=== PATIENT | male | born 1985 | race Hispanic/Latino ===

== ENCOUNTER 2022-03-13 13:34 | Inpatient (IN) | payer SELFPAY ==
[2022-03-13] MEDS ORDERED: HYDROcodone/Acetaminophen 7.5/325 mg Tablet ONE (13:59)
[2022-03-13 15:30] LABS: #Basophils 0.1 thou/uL (0.0-0.2); #Eosinphils 0.1 thou/uL (0.0-0.7); #Lymphocytes 2.4 thou/uL (1.20-3.40); #Monocytes 0.8 thou/uL (0.11-0.59); #Neutrophils 7.6 thou/uL (1.40-6.50); %Basophils 0.7 % (0.0-1.0); %Eosinophils 0.6 % (0.0-10.0); %Lymphocytes 22.1 % (21.0-51.0); %Monocytes 7.3 % (0.0-10.0); %Neutrophils 69.2 % (42.0-75.0); Hemoglobin 14.2 g/dL (14.0-18.0); Mean Corpuscular HGB CONC 34.8 g/dL (32.0-36.0); Mean Corpuscular Hemoglobin 31.6 pg (27.0-31.0); Mean Corpuscular Volume 90.7 fL (78.0-98.0); Mean Platelet Volume 7.6 fL (7.4-10.4); Platelet Count 264 thou/uL (130-400); RBC Distribution Width 11.7 % (11.5-14.5); Red Blood Cell (RBC) Count 4.49 mill/uL (4.70-6.10)
[2022-03-13 15:46] LABS: ALT (SGPT) 31 U/L (8-55); AST (SGOT) 22 U/L (5-34); Albumin 4.6 g/dL (3.5-5.0); Alkaline Phosphatase 94 U/L (40-110); Anion Gap 13 mmol/L (10-20); BUN (Urea Nitrogen) 8 mg/dL (8.9-20.6); Bilirubin, Total 1.4 mg/dL (0.2-1.2); Calc. Creatinine Clearance 0 mL/min (70-130); Calcium 9.4 mg/dL (7.8-10.44); Carbon Dioxide 22 mmol/L (22-29); Chloride 100 mmol/L (98-107); Globulin 3.1 g/dL (2.4-3.5); Glucose 236 mg/dL (70-105); Magnesium 1.8 mg/dL (1.6-2.6); Potassium 3.8 mmol/L (3.5-5.1); Protein, Total 7.7 g/dL (6.0-8.3); Sodium 131 mmol/L (136-145)
[2022-03-13 15:52] LABS: PTT 28.3 sec (22.9-36.1); Prothrombin Time 13.5 sec (12.0-14.7)
[2022-03-13] MEDS ORDERED: Ketorolac Tromethamine 30 MG/ML VIAL ONE (15:59)
[2022-03-13] MEDS ORDERED: Morphine 4 MG/ML VIAL ONE (15:59)
[2022-03-13] MEDS ORDERED: hydrALAZINE 20 MG/ML VIAL SLOW IVP PRN (16:00)
[2022-03-13] MEDS ORDERED: Potassium Phosphate 15 MMOL in Sodium Chloride 0.9% 250 ML 250 ML IVPB SCH (16:00)
[2022-03-13] MEDS ORDERED: ceFAZolin (BATCH) 2 GM in Premix Bag 1 BAG IVPB SCH (16:00)
[2022-03-13] MEDS ORDERED: Dextrose 5% in Water 1,000 ML IV PRN (16:00)
[2022-03-13] MEDS ORDERED: Magnesium 2 GM/50 ML(in water) 2 GM in Premix Bag 1 BAG IVPB SCH (16:00)
[2022-03-13] MEDS ORDERED: Dextrose 50% Abboject 50 ML SYRINGE SLOW IVP PRN (16:00)
[2022-03-13] MEDS ORDERED: Ondansetron PF 4 MG/2 ML Vial IVP PRN (16:00)
[2022-03-13] MEDS ORDERED: Morphine 4 MG/ML VIAL SLOW IVP PRN (16:00)
[2022-03-13] MEDS ORDERED: traMADol HCl 50 MG TAB PO PRN (16:03)
[2022-03-13] MEDS ORDERED: Cyclobenzaprine 10 MG TAB PO PRN (16:03)
[2022-03-13 16:27] LABS: SARS-CoV-2 NAA Rapid Test Not Detected (NotDetected)
[2022-03-13 18:40] VITALS: BMI 23.7
[2022-03-13] MEDS: Acetaminophen 500 MG TAB PO SCH ×2 (19:04→19:28)
[2022-03-13] MEDS: Senokot S 8.6-50 MG TAB PO SCH (19:28)
[2022-03-13] MEDS: Famotidine 20 MG TAB PO SCH (19:29)
[2022-03-13] MEDS: Gabapentin 300 MG CAP PO SCH (19:29)
[2022-03-14 05:05] LABS: #Basophils 0.1 thou/uL (0.0-0.2); #Eosinphils 0.1 thou/uL (0.0-0.7); #Lymphocytes 2.2 thou/uL (1.20-3.40); #Monocytes 0.8 thou/uL (0.11-0.59); #Neutrophils 6.1 thou/uL (1.40-6.50); %Basophils 0.6 % (0.0-1.0); %Eosinophils 1.1 % (0.0-10.0); %Monocytes 8.8 % (0.0-10.0); %Neutrophils 65.6 % (42.0-75.0); Hemoglobin 12.6 g/dL (14.0-18.0); Mean Corpuscular HGB CONC 33.5 g/dL (32.0-36.0); Mean Corpuscular Volume 92.3 fL (78.0-98.0); Mean Platelet Volume 7.5 fL (7.4-10.4); Platelet Count 237 thou/uL (130-400); RBC Distribution Width 11.8 % (11.5-14.5); Red Blood Cell (RBC) Count 4.08 mill/uL (4.70-6.10); White Blood Cell (WBC) Count 9.3 thou/uL (4.8-10.8)
[2022-03-14 05:31] LABS: Anion Gap 12 mmol/L (10-20); BUN (Urea Nitrogen) 8 mg/dL (8.9-20.6); Calc. Creatinine Clearance 155 mL/min (70-130); Calcium 8.8 mg/dL (7.8-10.44); Carbon Dioxide 23 mmol/L (22-29); Chloride 102 mmol/L (98-107); Glucose 189 mg/dL (70-105); Magnesium 2.1 mg/dL (1.6-2.6); Phosphorus 3.4 mg/dL (2.3-4.7); Potassium 4.1 mmol/L (3.5-5.1); Sodium 133 mmol/L (136-145)
[2022-03-14] MEDS: Acetaminophen 500 MG TAB PO SCH ×3 (06:00→12:26)
[2022-03-14 06:36] LABS: Amphetamine Not Detected (NotDetected); Barbiturates Screen Not Detected (NotDetected); Benzodiazepine Screen Not Detected (NotDetected); Cocaine Metabolite Screen Not Detected (NotDetected); Methadone Not Detected (NotDetected); Methamphetamine Not Detected (NotDetected); Opiate Screen Detected (NotDetected); Oxycodone Screen Not Detected (NotDetected); Phencyclidine (PCP) Not Detected (NotDetected); THC/Cannabinoid Screen Not Detected (NotDetected); Tricyclic Screen Not Detected (NotDetected)
[2022-03-14] MEDS: Famotidine 20 MG TAB PO SCH (07:42)
[2022-03-14] MEDS: Gabapentin 300 MG CAP PO SCH ×2 (07:43→17:40)
[2022-03-14] MEDS: traMADol HCl 50 MG TAB PO PRN ×2 (07:43→18:23)
[2022-03-14] MEDS: Senokot S 8.6-50 MG TAB PO SCH (08:02)
[2022-03-14] MEDS ORDERED: Polyethylene Glycol 3350 17 GM Packet PO SCH (09:00)
[2022-03-14] MEDS ORDERED: PHOS-NAK 1 PKT PACK PO SCH (09:15)
[2022-03-14] MEDS ORDERED: Fentanyl 100 MCG/2 ML VIAL ONE ×2 (09:17→09:38)
[2022-03-14] MEDS ORDERED: Midazolam HCl 2 mg/2 ml Vial ONE (09:38)
[2022-03-14] MEDS ORDERED: ceFAZolin (BATCH) 2 GM/100 ML BAG ONE (09:44)
[2022-03-14] MEDS ORDERED: Promethazine HCl 25 MG/ML VIAL IVPB PRN (11:43)
[2022-03-14] MEDS ORDERED: Ondansetron HCl/PF 4 MG/2 ML Vial IVP PRN (11:43)
[2022-03-14] MEDS ORDERED: Promethazine HCl 25 MG/ML VIAL IM PRN (11:43)
[2022-03-14 16:54] VITALS: BP 137/86; TEMP 98
[2022-03-14] MEDS ORDERED: ceFAZolin (BATCH) 2 GM in Premix Bag 1 BAG IVPB SCH (18:00)
[2022-03-14] MEDS ORDERED: Acetaminophen 325 MG TAB PO SCH (18:00)
== END 2022-03-14 18:26 | disposition home or self-care (01) | DRG 494 ==
LOC: ERS 13:34 → SJJU 15:31
PROVIDERS: ADMIT Surgery; ATTEND Surgery
PROC: 0QHH36Z Insertion of Intramedullary Internal Fixation Device into Left Tibia, Percutaneous Approach (ICD-10-PCS; principal; 2022-03-14)
PROC: 0QSKXZZ Reposition Left Fibula, External Approach (ICD-10-PCS; 2022-03-14)
DX: S82.392A Other fracture of lower end of left tibia, initial encounter for closed fracture (principal); Z20.822 Contact with and (suspected) exposure to COVID-19; W19.XXXA Unspecified fall, initial encounter; S82.492A Other fracture of shaft of left fibula, initial encounter for closed fracture; Z28.311 Partially vaccinated for COVID-19; Z90.49 Acquired absence of other specified parts of digestive tract
CPT/HCPCS: 27750; 36415; 71045; 76000; 80048; 80053; 80306; 80307; 83735; 84100; 85025; 85610; 85730; 86850; 86900; 86901; 94760; 96374; 96375; C1713; J0690; J1885; J2250; J2270; J3010; J3475; J7050; U0002